=== PATIENT | female | born 1945 | race African-American/Black ===

== ENCOUNTER 2016-12-06 02:35 | Observation (INO) | payer OTHER ==
[~2016-12-06] VITALS: Ht 172.7 cm; Wt 61.2 kg
[~2016-12-06 02:35] MED LIST: CLOP75TA2 PO; LEVO50TA70 PO; SIMV40TA5 PO
[2016-12-06] MEDS ORDERED: SODIUM CHLORIDE 0.9% 1,000 ML IV ONE (02:56)
[2016-12-06] MEDS ORDERED: MECLIZINE 25MG TABLET PO ONE (03:00)
[2016-12-06 04:14] LABS: BASOPHILS % 0.8 % (0.0-2.0); EOSINOPHILS % 2.5 % (0.0-5.0); HEMOGLOBIN. 13.6 g/dL (12.0-16.0); LYMPHOCYTES % 31.5 % (20.0-50.0); MEAN CORPUSCULAR HEMOGLOBIN 32.3 pg (28.0-32.0); MEAN CORPUSCULAR HGB CONC 32.5 g/dL (31.0-37.0); MEAN CORPUSCULAR VOLUME 99.4 fL (81.0-99.0); MEAN PLATELET VOLUME 8.2 fl (7.4-10.4); MONOCYTES % 9.4 % (2.0-8.0); NEUTROPHILS % 55.8 % (40.0-76.0); PLATELET 244 x1000/uL (130-400); RED BLOOD CELL COUNT 4.22 mill/uL (4.2-5.4); RED CELL DISTRIBUTION WIDTH 15.7 % (11.6-14.6); WHITE BLOOD COUNT 5.5 x1000/uL (4.5-11.0)
[2016-12-06] MEDS ORDERED: ASPIRIN 325MG EC TABLET PO ONE (04:30)
[2016-12-06 04:32] LABS: ALANINE AMINOTRANSFERASE 17 IU/L (13-61); ALBUMIN 3.8 g/dL (3.4-5.0); ANION GAP 9; CALCIUM 8.6 mg/dL (8.5-10.1); CARBON DIOXIDE 30 mEq/L (21-32); CHLORIDE 109 mEq/L (98-107); CREATINE KINASE MB FRACTION < 0.5 ng/mL (0.5-3.6); INDEX HEMOLYSI 2 (1-3); INDEX ICTERIC 1 (1-4); INDEX LIPEMIC 1 (1-3); TROPONIN I < 0.02 ng/mL (0.00-0.04); UREA NITROGEN BLOOD 21 mg/dL (7-21); eGFR > 60 mL/min (>60)
[2016-12-06] MEDS ORDERED: CLONIDINE 0.1MG TABLET PO PRN (16:15)
[2016-12-06] MEDS ORDERED: ACETAMINOPHEN 325MG TABLET PO PRN (16:15)
[2016-12-06] MEDS ORDERED: HYDROCODONE/ACETAMINOPHEN 5/325MG TABLET PO PRN (16:15)
[2016-12-06] MEDS ORDERED: ONDANSETRON HCL 4MG/2ML VIAL IV PRN (16:15)
[2016-12-06] MEDS ORDERED: IPRATROPIUM/ALBUTEROL 0.5-3(2.5)MG/3ML NEB INH PRN (16:15)
[2016-12-06] MEDS: SODIUM CHLORIDE 0.45% 1,000 ML IV SCH (17:44)
[2016-12-06] MEDS: ENOXAPARIN 40MG/0.4ML SYR SUBCUT SCH (17:44)
[2016-12-06 18:09] VITALS: BP 126/77
[2016-12-06 20:00] VITALS: BP 111/68
[2016-12-06 23:17] LABS: CREATINE KINASE 69 IU/L (26-192); INDEX HEMOLYSI 1 (1-3); TROPONIN I < 0.02 ng/mL (0.00-0.04)
[2016-12-07] VITALS: BP 102/63
[2016-12-07 04:00] VITALS: BP_SYST 101; BP_SYST 108; BP_SYST 127; BP_DIAS 62; BP_DIAS 71; BP_DIAS 72
[2016-12-07 06:17] LABS: BASOPHILS % 1.2 % (0.0-2.0); EOSINOPHILS % 2.8 % (0.0-5.0); HEMOGLOBIN. 13.1 g/dL (12.0-16.0); LYMPHOCYTES % 46.7 % (20.0-50.0); MEAN CORPUSCULAR HEMOGLOBIN 32.6 pg (28.0-32.0); MEAN CORPUSCULAR HGB CONC 32.8 g/dL (31.0-37.0); MEAN CORPUSCULAR VOLUME 99.3 fL (81.0-99.0); MEAN PLATELET VOLUME 8.6 fl (7.4-10.4); MONOCYTES % 5.6 % (2.0-8.0); NEUTROPHILS % 43.7 % (40.0-76.0); PLATELET 270 x1000/uL (130-400); RED BLOOD CELL COUNT 4.03 mill/uL (4.2-5.4); WHITE BLOOD COUNT 5.7 x1000/uL (4.5-11.0)
[2016-12-07 06:46] LABS: ALBUMIN 3.3 g/dL (3.4-5.0); ANION GAP 13; CALCIUM 8.2 mg/dL (8.5-10.1); CARBON DIOXIDE 24 mEq/L (21-32); CHLORIDE 108 mEq/L (98-107); HDL CHOLESTEROL 90 mg/dL (40-59); INDEX HEMOLYSI 1 (1-3); INDEX ICTERIC 1 (1-4); INDEX LIPEMIC 1 (1-3); LDL CHOLESTEROL 68 mg/dL (5-100); T4 FREE 1.11 ng/dL (0.76-1.46); TROPONIN I < 0.02 ng/mL (0.00-0.04); UREA NITROGEN BLOOD 21 mg/dL (7-21)
[2016-12-07 06:47] LABS: ALANINE AMINOTRANSFERASE 16 IU/L (13-61); CREATINE KINASE 78 IU/L (26-192); TRIGLYCERIDE 65 mg/dL (0-150); eGFR > 60 mL/min (>60)
[2016-12-07 08:15] VITALS: BP_SYST 109; BP_SYST 116; BP_SYST 122; BP_DIAS 68; BP_DIAS 70; BP_DIAS 73
[2016-12-07 12:00] VITALS: BP 122/77
[2016-12-07] MEDS: SODIUM CHLORIDE 0.45% 1,000 ML IV SCH (13:08)
[2016-12-07 16:00] VITALS: BP 118/72
[2016-12-07] MEDS: ENOXAPARIN 40MG/0.4ML SYR SUBCUT SCH (17:21)
[2016-12-07 20:00] VITALS: BP_SYST 102; BP_SYST 109; BP_SYST 120; BP_DIAS 58; BP_DIAS 70
[2016-12-08] VITALS: BP 124/61
[2016-12-08 04:00] VITALS: BP 130/66
[2016-12-08 08:00] VITALS: BP_SYST 136; BP_SYST 140; BP_SYST 141; BP_DIAS 79; BP_DIAS 82; BP_DIAS 83
[2016-12-08] MEDS: SODIUM CHLORIDE 0.45% 1,000 ML IV SCH (10:49)
[2016-12-08 12:30] VITALS: BP 124/70
== END 2016-12-08 16:25 | disposition home or self-care (01) ==
LOC: ER 02:37 → 5WST 04:54 → INTOOBSV 04:54
PROVIDERS: ADMIT Internal Medicine; ATTEND Internal Medicine
DX: E03.9 Hypothyroidism, unspecified (principal); E78.5 Hyperlipidemia, unspecified; I10 Essential (primary) hypertension; I25.10 Atherosclerotic heart disease of native coronary artery without angina pectoris; Z86.73 Personal history of transient ischemic attack (TIA), and cerebral infarction without residual deficits; Z95.0 Presence of cardiac pacemaker; R42 Dizziness and giddiness
CPT/HCPCS: 36415; 70450; 71010; 80053; 80061; 82550; 82553; 84439; 84443; 84484; 85025; 93005; 93306; 96360; 96361; 96372; 97162; 99285; G0378; J1650; J7030; J8597

== ENCOUNTER 2018-04-11 08:53 | Inpatient (IN) | payer OTHER ==
[~2018-04-11] VITALS: Ht 160 cm; Wt 59.0 kg
[~2018-04-11 08:53] MED LIST changes: +CLOP75TA16 PO; -CLOP75TA2 PO; +LEVO100T9 PO; -LEVO50TA70 PO
[2018-04-11] MEDS ORDERED: SODIUM CHLORIDE 0.9% 1,000 ML IV ONE (09:18)
[2018-04-11 09:57] LABS: HEMATOCRIT. 50.5 % (36.0-48.0); HEMOGLOBIN. 16.2 g/dL (12.0-16.0); MEAN CORPUSCULAR HEMOGLOBIN 26.3 pg (28.0-32.0); MEAN CORPUSCULAR VOLUME 81.9 fL (81.0-99.0); MEAN PLATELET VOLUME 8.3 fl (7.4-10.4); PLATELET 446 x1000/uL (130-400); RED BLOOD CELL COUNT 6.16 mill/uL (4.2-5.4); RED CELL DISTRIBUTION WIDTH 15.4 % (11.6-14.6)
[2018-04-11 10:00] LABS: CHLORIDE 106 mEq/L (98-107)
[2018-04-11 10:24] LABS: INR 1.1; PROTHROMBIN TIME 11.8 sec (9.4-11.6)
[2018-04-11 10:51] LABS: PLATELET ESTIMATE INCREASED
[2018-04-11] MEDS ORDERED: MORPHINE SULFATE 4 MG/ML CPJ (NOT FOR IM USE) IV PRN (13:45)
[2018-04-11] MEDS ORDERED: DIPHENHYDRAMINE 50MG/ML VIAL IV PRN (13:45)
[2018-04-11] MEDS ORDERED: ACETAMINOPHEN 650MG SUPP PR PRN (13:45)
[2018-04-11] MEDS: PANTOPRAZOLE SODIUM 40 MG/VIAL IV SCH ×2 (15:00→21:28)
[2018-04-11] MEDS ORDERED: PIPERACILLIN/TAZ 3.375G PREMIX 50 ML IV SCH (15:00)
[2018-04-11 16:05] LABS: CLARITY URINE CLEAR (CLEAR); COLOR URINE DARK YELLOW (YELLOW); KETONES URINE 3+ (NEGATIVE); LEUKOCYTE ESTERASE URINE NEGATIVE (NEGATIVE); NITRITE URINE NEGATIVE (NEGATIVE); OCCULT BLOOD URINE NEGATIVE (NEGATIVE); PROTEIN URINE 2+ (NEGATIVE); SPECIFIC GRAVITY URINE 1.038 (1.005-1.030); UROBILINOGEN URINE 0.2 E.U./dL (0.2-1.0)
[2018-04-11 16:24] LABS: *AMPHETAMINES SCREEN URINE NEGATIVE (NEGATIVE); *BARBITURATES SCREEN URINE NEGATIVE (NEGATIVE); *BENZODIAZEPINES SCREEN URINE NEGATIVE (NEGATIVE); *COCAINE SCREEN URINE NEGATIVE (NEGATIVE)
[2018-04-11 16:25] LABS: CANNABINOID URINE SCREEN NEGATIVE (NEGATIVE); METHADONE URINE SCREEN NEGATIVE (NEGATIVE); OPIATES URINE SCREEN NEGATIVE (NEGATIVE); PHENCYCLIDINE URINE SCREEN NEGATIVE (NEGATIVE)
[2018-04-11 17:46] LABS: HEMATOCRIT 44.6 % (36.0-48.0); HEMOGLOBIN 14.2 g/dL (12.0-16.0); MEAN CORPUSCULAR VOLUME 81.8 fL (81.0-99.0); PLATELET 397 x1000/uL (130-400); RED BLOOD CELL COUNT 5.45 mill/uL (4.2-5.4); RED CELL DISTRIBUTION WIDTH 15.5 % (11.6-14.6)
[2018-04-11 17:52] LABS: CHLORIDE 110 mEq/L (98-107)
[2018-04-11] MEDS ORDERED: ONDANSETRON 4MG ODT PO PRN (18:35)
[2018-04-11 20:00] VITALS: BP_SYST 108; BP_SYST 122; BP_DIAS 64; BP_DIAS 65
[2018-04-11 21:00] VITALS: BP 99/63
[2018-04-11] MEDS ORDERED: LEVOFLOXACIN 500MG PREMIX 100 ML IV NR (21:00)
[2018-04-11] MEDS: DEXT 5%/0.45% NACL 1000ML 1,000 ML IV SCH (21:19)
[2018-04-11 22:00] VITALS: BP 107/68
[2018-04-11 23:00] VITALS: BP 107/72
[2018-04-12] VITALS (15 sets, daily range): BP systolic 92–162; BP diastolic 47–78
[2018-04-12] MEDS: DEXT 5%/0.45% NACL 1000ML 1,000 ML IV SCH ×3 (01:16→22:15)
[2018-04-12] MEDS: PANTOPRAZOLE SODIUM 40 MG/VIAL IV SCH ×2 (08:49→22:14)
[2018-04-12 10:31] LABS: BASOPHILS % 0.8 % (0.0-2.0); EOSINOPHILS % 3.6 % (0.0-5.0); HEMATOCRIT. 42.7 % (36.0-48.0); HEMOGLOBIN. 13.6 g/dL (12.0-16.0); LYMPHOCYTES % 15.9 % (20.0-50.0); MEAN CORPUSCULAR HEMOGLOBIN 26.1 pg (28.0-32.0); MEAN PLATELET VOLUME 8.1 fl (7.4-10.4); NEUTROPHILS % 72.7 % (40.0-76.0); PLATELET 400 x1000/uL (130-400); RED BLOOD CELL COUNT 5.21 mill/uL (4.2-5.4); RED CELL DISTRIBUTION WIDTH 15.2 % (11.6-14.6)
[2018-04-12 12:48] LABS: CHLORIDE 108 mEq/L (98-107)
[2018-04-12 12:57] LABS: LDL CHOLESTEROL 38 mg/dL (5-100)
[2018-04-12 12:58] LABS: T4 FREE 1.51 ng/dL (0.76-1.46)
[2018-04-12 12:59] LABS: HDL CHOLESTEROL 61 mg/dL (40-59)
[2018-04-12 18:32] LABS: HEMATOCRIT 40.5 % (36.0-48.0); HEMOGLOBIN 12.8 g/dL (12.0-16.0)
[2018-04-12] MEDS: LEVOFLOXACIN 250MG PREMIX 50 ML IV SCH (22:15)
[2018-04-13] VITALS (12 sets, daily range): BP systolic 89–144; BP diastolic 60–84
[2018-04-13 01:53] LABS: HEMATOCRIT 40.4 % (36.0-48.0); HEMOGLOBIN 12.6 g/dL (12.0-16.0)
[2018-04-13] MEDS: DEXT 5%/0.45% NACL 1000ML 1,000 ML IV SCH ×2 (06:04→16:23)
[2018-04-13 06:31] LABS: HEMATOCRIT 41.1 % (36.0-48.0); HEMOGLOBIN 13.2 g/dL (12.0-16.0); MEAN CORPUSCULAR HEMOGLOBIN 26.1 pg (28.0-32.0); MEAN CORPUSCULAR VOLUME 81.4 fL (81.0-99.0); PLATELET 391 x1000/uL (130-400); RED BLOOD CELL COUNT 5.05 mill/uL (4.2-5.4); RED CELL DISTRIBUTION WIDTH 15.1 % (11.6-14.6)
[2018-04-13 07:10] LABS: CHLORIDE 105 mEq/L (98-107)
[2018-04-13] MEDS: PANTOPRAZOLE SODIUM 40 MG/VIAL IV SCH ×2 (09:16→21:53)
[2018-04-13 16:07] LABS: HEMATOCRIT 41.6 % (36.0-48.0); HEMOGLOBIN 13.2 g/dL (12.0-16.0)
[2018-04-13 21:16] LABS: HEMATOCRIT 43.3 % (36.0-48.0); HEMOGLOBIN 13.8 g/dL (12.0-16.0)
[2018-04-13] MEDS: LEVOFLOXACIN 250MG PREMIX 50 ML IV SCH (21:53)
[2018-04-13] MEDS: HEMORRHOIDAL SUPP PR SCH (21:53)
[2018-04-14] VITALS (12 sets, daily range): BP systolic 112–145; BP diastolic 64–84
[2018-04-14] MEDS: DEXT 5%/0.45% NACL 1000ML 1,000 ML IV SCH ×3 (02:24→22:13)
[2018-04-14] MEDS: PANTOPRAZOLE SODIUM 40 MG/VIAL IV SCH ×2 (09:10→20:30)
[2018-04-14] MEDS: HEMORRHOIDAL SUPP PR SCH (09:10)
[2018-04-14 16:14] LABS: BASOPHILS % 1.2 % (0.0-2.0); EOSINOPHILS % 2.8 % (0.0-5.0); HEMATOCRIT. 44.4 % (36.0-48.0); HEMOGLOBIN. 14.2 g/dL (12.0-16.0); LYMPHOCYTES % 23.5 % (20.0-50.0); MEAN CORPUSCULAR HEMOGLOBIN 26.1 pg (28.0-32.0); MEAN CORPUSCULAR VOLUME 81.4 fL (81.0-99.0); MEAN PLATELET VOLUME 8.1 fl (7.4-10.4); MONOCYTES % 7.5 % (2.0-8.0); PLATELET 442 x1000/uL (130-400); RED BLOOD CELL COUNT 5.45 mill/uL (4.2-5.4); RED CELL DISTRIBUTION WIDTH 15.3 % (11.6-14.6)
[2018-04-14] MEDS ORDERED: POTASSIUM CHLORIDE 20MEQ TABLET SR PO NR (18:30)
[2018-04-14] MEDS: LEVOFLOXACIN 250MG PREMIX 50 ML IV SCH (20:30)
[2018-04-15] VITALS (7 sets, daily range): BP systolic 121–161; BP diastolic 72–88
[2018-04-15] MEDS: PANTOPRAZOLE SODIUM 40 MG/VIAL IV SCH (10:16)
== END 2018-04-15 11:30 | disposition home or self-care (01) | DRG 393 ==
LOC: ER 08:53 → 5EST 08:54 → EDBEDREQ 12:54 → EDBEDREQTM 12:54 → CANRESERV 13:04 → ENRESERV 13:04 → SUPCPDRO 13:41 → EDBEDREQSVC 15:27 → ENRESERV 16:27
PROVIDERS: ADMIT Internal Medicine; ATTEND Internal Medicine
DX: K64.9 Unspecified hemorrhoids (principal); I50.33 Acute on chronic diastolic (congestive) heart failure; I11.0 Hypertensive heart disease with heart failure; D72.829 Elevated white blood cell count, unspecified; R73.9 Hyperglycemia, unspecified; E78.5 Hyperlipidemia, unspecified; E05.90 Thyrotoxicosis, unspecified without thyrotoxic crisis or storm; I25.10 Atherosclerotic heart disease of native coronary artery without angina pectoris; I25.2 Old myocardial infarction; Z79.82 Long term (current) use of aspirin; Z86.73 Personal history of transient ischemic attack (TIA), and cerebral infarction without residual deficits; Z90.710 Acquired absence of both cervix and uterus; Z95.0 Presence of cardiac pacemaker; Z88.0 Allergy status to penicillin; Z88.1 Allergy status to other antibiotic agents; Z79.899 Other long term (current) drug therapy; Z87.891 Personal history of nicotine dependence; D45 Polycythemia vera
CPT/HCPCS: 36415; 71045; 74176; 78278; 80048; 80053; 80061; 80305; 81003; 83036; 83690; 83880; 84145; 84439; 84443; 84484; 85014; 85018; 85025; 85027; 85610; 86850; 86900; 87040; 93005; 93306; 93970; 96360; 97162; 97530; 99285; A6261; A9560; C9113; J1956; J7030